=== PATIENT | female | born 1935 | race Caucasian/White ===

== ENCOUNTER 2017-11-30 21:45 | Inpatient (IN) | payer MEDICARE, MEDICAID ==
[~2017-11-30] VITALS: Ht 170.2 cm; Wt 68.0 kg
[~2017-11-30 21:45] MED LIST: AMLO2.5T3 PO; CIPR-263 PO
--- NOTE | 2017-11-30 22:00 | NUR ---
PT BBRA FROM HOME C/O ACHING L HIP PAIN 3/10 S/P FALLING AT HOME. PT STATES SHE BECAME DIZZY WHILE WALKING AND FELL DOWN ON THE LEFT SIDE. -KO. -N/V/D. PT STATES SHE HAS HX OF VERTIGO AND EXPLAINED HOW THE DIZZINESS FELT LIKE HER USUAL VERTIGO SYMPTOMS. PEDAL PULSES STRONG AND EQULA BILATERAL. EQUAL SENSATIONS BILATERAL. NO SKIN BRAKDOWNS OR BRUSING NOTED. SKIN WARM AND DRY. PT IS AAOX4. RESP EVEN AND UNLABORED. NO S/S OF DISTRESS NOTED. VSS. PT SAFETY AND COMOFRT MEAUSRES IN PLACE. PT PLACED ON MONITOR AND POX. FAMILY MEMBERS BEDSIDE WITH PT. BEDSIDE FOR EVAL.
[2017-12-01] MEDS ORDERED: HYDROMORPHONE 1 MG/1 ML DISP.SYRIN IV ONE
[2017-12-01] MEDS ORDERED: HYDROMORPHONE INJ 2 MG/ML DISP.SYRIN ONE (00:09)
[2017-12-01 00:10] LABS: BASOPHILS % (AUTO) 0.3 % (0.0-2.0); EOSINOPHILS % (AUTO) 0.1 % (0.0-6.0); HEMATOCRIT 37 % (33-45); HEMOGLOBIN 12.5 g/dL (11.5-14.8); LYMPHOCYTES # (AUTO) 0.8 /CMM (0.8-4.8); LYMPHOCYTES % (AUTO) 7.2 % (20.0-44.0); MEAN CORPUSCULAR HGB CONC 34 g/dl (31.0-36.0); MEAN CORPUSCULAR VOLUME 96 fL (82-100); MONOCYTES # (AUTO) 0.7 /CMM (0.1-1.30); MONOCYTES % (AUTO) 6.1 % (2.0-12.0); NEUTROPHILS # (AUTO) 9.4 /CMM (1.8-8.9); NEUTROPHILS % (AUTO) 86.3 % (43.0-81.0); PLATELET COUNT (AUTO) 205 /CMM (150-450); RDW COEFFICIENT OF VARIATION 13.4 (11.5-15.0); RED BLOOD CELL COUNT(AUTO) 3.85 MIL/uL (4.0-5.2); WHITE BLOOD COUNT (AUTO) 10.9 K/uL (4.3-11.0)
[2017-12-01 00:21] LABS: CALCIUM, SERUM 8.5 mg/dL (8.5-10.1); CARBON DIOXIDE 26 mmol/L (21-32); CHLORIDE 105 mmol/L (98-107); CREATININE 0.9 mg/dL (0.6-1.3); GLUCOSE 171 mg/dL (74-106); POTASSIUM 4.3 mmol/L (3.5-5.1); SODIUM SERUM 139 mmol/L (136-145); UREA NITROGEN, BLOOD 16 mg/dL (7-18)
[2017-12-01] MEDS ORDERED: DEXL60CA3 PO (00:34)
[2017-12-01] MEDS ORDERED: LOSA50TA21 PO (00:34)
[2017-12-01] MEDS ORDERED: AMLO5TAB7 PO (00:34)
[2017-12-01 00:35] LABS: INR 1.02 (0.87-1.13)
--- NOTE | 2017-12-01 00:40 | NUR ---
REPORT GIVEN TO ERICK BAIN DUYEN FOR CATRACHO.
[2017-12-01] MEDS ORDERED: ONDANSETRON HCL/PF 4 MG/2 ML VIAL ONE (00:58)
[2017-12-01] MEDS ORDERED: ONDANSETRON HCL/PF 4 MG/2 ML VIAL IV PRN (01:00)
[2017-12-01 01:15] VITALS: BP 144/76
[2017-12-01] MEDS ORDERED: MORPHINE SULFATE INJ 2 MG/ML DISP.SYRIN IV PRN (01:30)
[2017-12-01] MEDS ORDERED: IV D5/0.45 NACL 1,000 ML IV PRN (01:30)
[2017-12-01] MEDS ORDERED: ONDANSETRON HCL/PF 4 MG/2 ML VIAL IVP PRN (01:30)
[2017-12-01] MEDS ORDERED: ACETAMINOPHEN 650 MG/SUPP.RECT RC PRN (01:30)
--- NOTE | 2017-12-01 01:30 | NUR ---
RN NOTE; RECEIVED AND ADMITTED THE PT FROM ER. BREATHING EVENLY. NO SOB. NAD. NO C/O PAIN LONG REMAINED UNTOUCHED AND NOT MOVED. VSS. MEDICAL INFO WAS OBTAINED FROM THE DTRs AT THE BED SIDE. NEEDS ATTENDED , BED LOW LOCKED ,CALL LIGHT WITHIN REACH. WILL CONT TO MONITOR ,
--- NOTE | 2017-12-01 01:45 | NUR ---
RECEIVED ADMITTING ORDER FROM DR. MARI . W/ AN ORDER FOR ADMIT TO "TELEMETRY". CALLED DR. MARI AND VERIFIED THE ORDER W/ . DR. MARI ALSO W. AN ORDER TO INSERT F/C WHILE OBTAINING URINE SAMPLE. CLEANING CUSTODIAN MADE AWARE. PT WAS ASSIGNED TO ROOM 325-1.
--- NOTE | 2017-12-01 01:58 | NUR ---
RN NOTES: PT COMPLAINING OF 8/10 L HIP PAIN. PT REQUESTING FOR PAIN MEDICATION. PT WAS ADMINISTERED MORPHINE IV. WILL CONTINUE TO MONITOR.
--- NOTE | 2017-12-01 02:30 | NUR ---
TELE/RN NOTES RECEIVED PT. FROM [facility] VIA BED. RECEIVED BEDSIDE REPORT FROM ODELL SORIA. PT. IS AWAKE, ALERT AND ORIENTED X4. BREATHING EVEN AND UNLABORED ON 2LPM O2 VIA NC. NO SOB, RESPIRATORY DISTRESS OR COMPLAINTS OF PAIN NOTED AT THIS TIME. PT. WITH LEFT AC 20 GAUGE PERIPHERAL IV PRESENT, PATENT AND INTACT ADMINISTERING TO PT. D5 1/2 NS @ 70ML/HR. PER ODELL SORIA PT. HAS STAT UA/ URINE CULTURE ORDERED AND PT. IS REFUSING ALVARADO CATHETER INSERTION AND REQUESTS TO USE BEDPAN WHEN NEEDING TO URINATE. EDUCATED PT. ON IMPORTANCE OF COLLECTING URINE AND IMPORTANCE OF ALVARADO CATHETER TO PREVENT PAIN FROM LEFT HIP FRACTURE WHEN TURNING AND REPOSITIONING WHEN NEEDING TO URINATE. PT. VERBALIZED UNDERSTANDING AND CONTINUES TO REFUSE. PT. NOTIFIED TO CALL FOR ASSISTANCE WITH USING BEDPAN WHEN NEEDED. PT. VERBALIZED UNDERSTANDING. BED LOCKED AND IN LOWEST POSITION, SIDE RAILS UP X2, BED ALARM ON, WILL CONTINUE TO MONITOR.
--- NOTE | 2017-12-01 02:45 | NUR ---
PT REFUSED ALVARADO CATH INSERTION. RISK VS. BENEFITS WERE EXPLAINED TO THE PT USING AN PHP WEB DEVELOPER . PT WAS TRANSFERRED TO THE 3RD ALVARADO RM:325-1 UNDER ACLS PROTOCOL I STABLE CONDITION. BED SIDE REPORT GIVEN TO CARRIE.
[2017-12-01 04:00] VITALS: BP 101/59
[2017-12-01 06:41] LABS: APPEARANCE,URINE CLOUDY (CLEAR); BILIRUBIN,URINE 1+ (NEGATIVE); BLOOD, URINE 1+ Ery/uL (NEGATIVE); COLOR,URINE YELLOW (YELLOW); KETONES,URINE NEGATIVE (NEGATIVE); LEUKOCYTE ESTERASE ,URINE NEGATIVE (NEGATIVE); NITRITE, URINE NEGATIVE (NEGATIVE); PH,URINE 5.5 (5.0-8.0); PROTEIN,URINE NEGATIVE (NEGATIVE); UGLUCOSE NEGATIVE (NEGATIVE); UROBILINOGEN,URINE 0.2 EU/dL (0.2)
--- NOTE | 2017-12-01 06:55 | NUR ---
TELE/RN NOTES PT. IS LYING IN BED RESTING. BREATHING EVEN AND UNLABORED ON 2LPM O2 VIA NC. NO SOB, RESPIRATORY DISTRESS OR COMPLAINTS OF PAIN NOTED AT THIS TIME. PT. WITH LEFT AC 20 GAUGE PERIPHERAL IV PRESENT, PATENT AND INTACT ADMINISTERING TO PT. D5 1/2 NS @ 70ML/HR. PT. WITH EXTERNAL LATEXER PRESENT AND INTACT. ALL PT. NEEDS MET. BED LOCKED AND IN LOWEST POSITION, SIDE RAILS UP X2, BED ALARM ON, WILL ENDORSE TO DAYSHIFT NURSE FOR CONTINUITY OF CARE.
--- NOTE | 2017-12-01 07:50 | NUR ---
APPRAISER OPENING NOTE PATIENT IS ALERT AND ORIENTED x4. POLISH SPEAKING. NO PAIN AT THIS TIME. NO SOB OR DISTRESS NOTED. CALL LIGHT WITHIN REACH. SAFETY MEASURES IMPLEMENTED. ABLE TO COMMUNICATE NEEDS. IV INTACT AND PATENT NO REDNESS OR SWELLING NOTED WITH IV FLUIDS RUNNING AT THIS TIME. TELE MONITOR-SR WITH PACS 64. NPO AT THIS TIME FOR POSSIBLE SURGERY WITH ORTHO. WILL CONTINUE TO MONITOR THROUGHOUT SHIFT
[2017-12-01 08:00] VITALS: BP 111/56
[2017-12-01] MEDS: IV NS 0.9% 1,000 ML IV PRN (08:44)
[2017-12-01] MEDS: ENOXAPARIN SODIUM 40 MG/0.4 ML DISP.SYRIN SQ SCH ×2 (09:00→10:06)
[2017-12-01] MEDS: AMLODIPINE BESYLATE 5 MG TABLET PO SCH (09:00)
[2017-12-01] MEDS ORDERED: PANTOPRAZOLE 40 MG VIAL IV SCH (09:00)
--- NOTE | 2017-12-01 09:40 | NUR ---
MS RN NOTE PER PAWEL ROBERTS OKAY TO GIVE ICE CHIPS.
--- NOTE | 2017-12-01 09:41 | NUR ---
RN NOTE LOVENOX HELD DUE TO POSSIBLE SURGERY. AWARE
--- NOTE | 2017-12-01 09:42 | NUR ---
RN NOTE CALLED PATIENT'S FAMILY FOR QUESTIONS ABOUT PATIENT. AWAITING CALL BACK
--- NOTE | 2017-12-01 10:05 | NUR ---
RN NOTE PATIENT NOW ON MEDSURG, OKAY TO TRANSFER ALL PREVIOUS ORDERS
--- NOTE | 2017-12-01 10:09 | NUR ---
RN NOTE PER OKAY TO GIVE LOVENOX PROPHYLAXIS. LOVENOX GIVEN
[2017-12-01 10:11] LABS: TROPONIN I < 0.017 ng/mL (0.00-0.056)
[2017-12-01 10:13] LABS: BACTERIA,URINE Few /HPF (None Seen); CALCIUM OXALATE CRYSTALS,UR Few /HPF (None Seen); URINE AMORPHOUS URATE Many /HPF (None Seen); WBC,URINE 0-2 /HPF (0-3)
[2017-12-01 10:20] LABS: CHOLESTEROL 128 mg/dL (<200); FERRITIN 249 ng/mL (8-388); HDL CHOLESTEROL 60 mg/dL (40-60); LDL 60 mg/dL (0-99); THYROID STIMULATING HORMONE 0.537 uIU/mL (0.358-3.74); TRIGLYCERIDES 52 mg/dL (30-150)
[2017-12-01 10:35] LABS: SQUAMOUS EPITHELIAL CELL,UR Few /HPF (None Seen)
[2017-12-01 12:00] VITALS: BP 100/54
--- NOTE | 2017-12-01 12:04 | NUR ---
MS RN NOTE PATIENT IS NO LONGER NPO. NPO ORDER WAS IN FOR POSSIBLE SURGERY TODAY. NOW ON CARDIAC DIET AND WILL BE NPO POST MIDNIGHT FOR SURGERY 12/02/[address] RUFF. Addendum: 12/01/17 at 1207 by TONY ESTEBAN RN PER DR. SPEEDY NG TO EAT AT THIS TIME
[2017-12-01 12:27] LABS: IRON, SERUM 46 ug/dl (50-175); TOTAL IRON BINDING CAPACITY 253 ug/dl (250-450)
[2017-12-01] MEDS ORDERED: FENTANYL PF 100MCG/2ML AMPUL IV PRN (12:30)
[2017-12-01 13:28] LABS: PHOSPHORUS 3.4 mg/dL (2.5-4.9)
--- NOTE | 2017-12-01 14:25 | NUR ---
MS RN NOTE ORDER TO CHANGE TYLENOL FROM SUPPOSITORY TO PO PER MD. ORDERS NOTED AND CARRIED OUT.
[2017-12-01] MEDS ORDERED: ACETAMINOPHEN 325 MG TABLET PO PRN (14:30)
[2017-12-01 16:00] VITALS: BP 94/54
--- NOTE | 2017-12-01 18:47 | NUR ---
MS RN CLOSING NOTE PATIENT RESTING COMFORTABLY AT THIS TIME. NO PAIN NOTED. NO SOB OR DISTRESS NOTED. CALL LIGHT WITHIN REACH AT ALL TIMES. SAFETY MEASURES IMPLEMENTED. ABLE TO COMMUNICATE NEEDS. IV INTACT AND PATENT NO REDNESS OR SWELLING NOTED WITH IV FLUIDS RUNNING AT THIS TIME. NPO AFTER MIDNIGHT FOR SURGERY TOMORROW WITH DR. RUFF. CONSENTS SIGNED AND OBTAINED, PLACED IN CHART. ALL DUE MEDICATIONS GIVEN ORDERED. ALL NURSING CARE NEEDS ATTENDED TO NEEDED. STILL WAITING FOR [facility] TO BRING SCD'S. PER MD TO HOLD OFF ON LOVENOX MORNING DOSE 12/02/17. WILL ENDORSE TO HADOOP JAVA DEVELOPER NURSE FOR CATRACHO
--- NOTE | 2017-12-01 19:10 | NUR ---
MS/RN NOTES RECEIVED PT. LYING IN BED, AWAKE, ALERT AND ORIENTED X3. BREATHING EVEN AND UNLABORED ON 2LPM O2 VIA NC. NO SOB, RESPIRATORY DISTRESS OR COMPLAINTS OF PAIN NOTED AT THIS TIME. PT. WITH LEFT AC 20 GAUGE PERIPHERAL IV PRESENT, PATENT AND INTACT ADMINISTERING TO PT. NS @ 75 ML/HR. PER DAYSHIFT NURSE PT. IS SCHEDULED FOR SURGERY TO FIX LEFT FEMUR FRACTURE TOMORROW MORNING. PT. IS TO BE NPO AFTER MIDNIGHT. PT. WITH FAMILY MEMBERS PRESENT AT BEDSIDE. BED LOCKED AND IN LOWEST POSITION, SIDE RAILS UP X3, BED ALARM ON, CALL LIGHT WITHIN REACH, WILL CONTINUE TO MONITOR.
[2017-12-01 20:00] VITALS: BP 126/55
[2017-12-01] MEDS: LOSARTAN POTASSIUM 50 MG TABLET PO SCH (22:30)
[2017-12-02] VITALS (13 sets, daily range): BP systolic 100–140; BP diastolic 40–75
--- NOTE | 2017-12-02 06:45 | NUR ---
MS/RN NOTES PT. IS LYING IN BED, AWAKE, ALERT AND ORIENTED X3. BREATHING EVEN AND UNLABORED ON 2LPM O2 VIA NC. NO SOB, RESPIRATORY DISTRESS OR COMPLAINTS OF PAIN NOTED AT THIS TIME. PT. WITH LEFT AC 20 GAUGE PERIPHERAL IV PRESENT, PATENT AND INTACT ADMINISTERING TO PT. NS @ 75 ML/HR. PT. HAS BEEN NPO SINCE MIDNIGHT. ALL PT. NEEDS MET. PT. IS AWAITING SURGERY AT 0730, CONSENTS SIGNED AND PLACED IN PT. CHART. BED LOCKED AND IN LOWEST POSITION, SIDE RAILS UP X3, BED ALARM ON, CALL LIGHT WITHIN REACH, WILL ENDORSE TO DAYSHIFT NURSE FOR CONTINUITY OF CARE.
--- NOTE | 2017-12-02 07:06 | NUR ---
MS/RN NOTES PT. IN STABLE CONDITION. PT. LEFT THE FLOOR FOR SURGERY VIA BED ACCOMPANIED BY 2 OR NURSES.
[2017-12-02] MEDS ORDERED: ANESTHESIA TRAY IN PYXIS 1 EA TRAY MC ONE (07:14)
[2017-12-02] MEDS ORDERED: BACITRACIN 50000 UNITS/VIAL ONE (07:15)
[2017-12-02] MEDS ORDERED: BUPIVACAINE 0.25% 75 MG/30 ML VIAL ONE (07:15)
[2017-12-02] MEDS: PANTOPRAZOLE 40 MG TABLET.DR PO SCH (07:30)
[2017-12-02] MEDS ORDERED: FENTANYL PF 100MCG/2ML AMPUL ONE (07:34)
[2017-12-02] MEDS ORDERED: CLINDAMYCIN 900 MG/6 ML VIAL ONE (07:35)
[2017-12-02 07:36] LABS: BASOPHILS # (AUTO) 0.1 /CMM (0.0-0.2); EOSINOPHILS % (AUTO) 2.6 % (0.0-6.0); HEMATOCRIT 29 % (33-45); HEMOGLOBIN 9.9 g/dL (11.5-14.8); LYMPHOCYTES # (AUTO) 1.6 /CMM (0.8-4.8); LYMPHOCYTES % (AUTO) 21.9 % (20.0-44.0); MEAN CORPUSCULAR HGB CONC 35 g/dl (31.0-36.0); MEAN CORPUSCULAR VOLUME 96 fL (82-100); MONOCYTES # (AUTO) 0.6 /CMM (0.1-1.30); NEUTROPHILS # (AUTO) 4.8 /CMM (1.8-8.9); NEUTROPHILS % (AUTO) 66.5 % (43.0-81.0); PLATELET COUNT (AUTO) 159 /CMM (150-450); RDW COEFFICIENT OF VARIATION 12.8 (11.5-15.0); RED BLOOD CELL COUNT(AUTO) 2.98 MIL/uL (4.0-5.2); WHITE BLOOD COUNT (AUTO) 7.3 K/uL (4.3-11.0)
[2017-12-02 07:41] LABS: CARBON DIOXIDE 28 mmol/L (21-32); CHLORIDE 107 mmol/L (98-107); CREATININE 0.8 mg/dL (0.6-1.3); GLUCOSE 101 mg/dL (74-106); POTASSIUM 3.9 mmol/L (3.5-5.1); SODIUM SERUM 140 mmol/L (136-145); UREA NITROGEN, BLOOD 18 mg/dL (7-18)
[2017-12-02] MEDS ORDERED: ERGOCALCIFEROL (VITAMIN D 2) 50,000 UNIT CAPSULE PO SCH (09:00)
[2017-12-02] MEDS: AMLODIPINE BESYLATE 5 MG TABLET PO SCH (09:00)
[2017-12-02] MEDS: ENOXAPARIN SODIUM 40 MG/0.4 ML DISP.SYRIN SQ SCH (09:00)
--- NOTE | 2017-12-02 10:25 | NUR ---
MS RN NOTE - Return from surgery Patient returned to the unit after surgery to left hip AAOx4, breathing on 2L O2 NC with no SOB, no pain, no signs of acute distress. Vitals WNL. New duran catheter in place draining clear yellow urine. Left hip has two dressings both clean, dry, and intact. Vitals to be taken q15min x4, q30min x2, and q1h x4. All post-op orders have been acknowledged and entered. Patient will start on clear liquids and advance as tolerated. Will continue to monitor.
[2017-12-02 11:41] LABS: BASOPHILS % (AUTO) 0.2 % (0.0-2.0); EOSINOPHILS % (AUTO) 0.3 % (0.0-6.0); HEMATOCRIT 29 % (33-45); HEMOGLOBIN 9.8 g/dL (11.5-14.8); LYMPHOCYTES # (AUTO) 0.6 /CMM (0.8-4.8); LYMPHOCYTES % (AUTO) 5.9 % (20.0-44.0); MEAN CORPUSCULAR HGB CONC 34 g/dl (31.0-36.0); MEAN CORPUSCULAR VOLUME 96 fL (82-100); MONOCYTES # (AUTO) 0.3 /CMM (0.1-1.30); MONOCYTES % (AUTO) 3.5 % (2.0-12.0); NEUTROPHILS # (AUTO) 8.7 /CMM (1.8-8.9); NEUTROPHILS % (AUTO) 90.1 % (43.0-81.0); PLATELET COUNT (AUTO) 161 /CMM (150-450); RDW COEFFICIENT OF VARIATION 12.5 (11.5-15.0); RED BLOOD CELL COUNT(AUTO) 2.98 MIL/uL (4.0-5.2); WHITE BLOOD COUNT (AUTO) 9.6 K/uL (4.3-11.0)
[2017-12-02 11:50] LABS: CALCIUM, SERUM 7.7 mg/dL (8.5-10.1); CARBON DIOXIDE 26 mmol/L (21-32); CHLORIDE 107 mmol/L (98-107); CREATININE 0.9 mg/dL (0.6-1.3); GLUCOSE 151 mg/dL (74-106); POTASSIUM 4.3 mmol/L (3.5-5.1); SODIUM SERUM 140 mmol/L (136-145); UREA NITROGEN, BLOOD 17 mg/dL (7-18)
[2017-12-02] MEDS ORDERED: SEVOFLURANE 250 ML BOTTLE IH ONE ×2 (14:23→14:29)
[2017-12-02] MEDS ORDERED: DESFLURANE 240 ML BOTTLE IH ONE ×2 (14:23→14:30)
[2017-12-02] MEDS ORDERED: TRAMADOL HCL 50 MG TABLET PO PRN (14:30)
[2017-12-02] MEDS ORDERED: VANCOMYCIN 1 GM in IV D5W 250ml IV SCH (15:00)
[2017-12-02] MEDS: VANCOMYCIN 1 GM in IV D5W 250ml IV SCH (16:08)
[2017-12-02] MEDS: DOCUSATE SODIUM 100 MG CAPSULE PO SCH (17:07)
[2017-12-02] MEDS: ACETAMINOPHEN 325 MG TABLET PO SCH (17:07)
--- NOTE | 2017-12-02 17:30 | NUR ---
MS RN NOTE - new IV Peripheral IV in left AC was found to be infiltrated. IV fluids were paused, IV removed, left arm elevated on pillow. New 22g peripheral IV was inserted in the right FA; good blood return, flushed, IV fluids resumed (NS at 75 ml/hr).
--- NOTE | 2017-12-02 18:23 | NUR ---
MS RN CLOSING NOTE Patient rests comfortably in bed AAOx4, breathing on 2L O2 NC with no SOB, and no signs of acute distress. Patient has reported only 2/10 pain at the incision site (left hip) throughout this shift. Two dressings cover the incisions and remain clean, dry, and intact. Vitals remained WNL. Diet was advanced gradually from clear liquids this AM to regular at dinner; no nausea or vomiting. Peripheral IV in right FA (22g) is running NS at 75 ml/hr. Choi cath is draining clear yellow urine. Bed is in low/locked position, two side rails up, call james within reach. Family is at bedside. All orders and patient needs met this shift. Patient care will be endorsed to striper nurse.
--- NOTE | 2017-12-02 19:45 | NUR ---
MS RN NOTES RECEIVED ON BED WITH HOB ELEVATED,A/O X3,SPEAK [place]OREAN,S/P LEFT HIP INTRA MEDULLARY RODDING TODAY BY DR RUFF.DRESSING INTACT AND DRY.IVF NS AT 75ML/HR RATE INFUSING WELL ON RFA VIA IV PUMP.AMBULATE WITH WALKER.CALL LIGHT IN REACH,NEEDS ANTICIPATED.
--- NOTE | 2017-12-02 22:15 | NUR ---
MS RN NOTES BP 110/63,DUE COZAAR 50MG PO GIVEN SCHEDULED.
[2017-12-02] MEDS: LOSARTAN POTASSIUM 50 MG TABLET PO SCH (22:19)
[2017-12-03] VITALS (7 sets, daily range): BP systolic 88–151; BP diastolic 45–69
[2017-12-03] MEDS: VANCOMYCIN 1 GM in IV D5W 250ml IV SCH (03:45)
[2017-12-03] MEDS: IV NS 0.9% 1,000 ML IV PRN ×2 (04:02→08:58)
[2017-12-03] MEDS: ACETAMINOPHEN 325 MG TABLET PO SCH ×4 (05:47→17:02)
[2017-12-03 06:37] LABS: BASOPHILS % (AUTO) 0.3 % (0.0-2.0); EOSINOPHILS % (AUTO) 0.2 % (0.0-6.0); HEMATOCRIT 23 % (33-45); LYMPHOCYTES # (AUTO) 1.1 /CMM (0.8-4.8); LYMPHOCYTES % (AUTO) 15.3 % (20.0-44.0); MEAN CORPUSCULAR HGB CONC 35 g/dl (31.0-36.0); MEAN CORPUSCULAR VOLUME 96 fL (82-100); MONOCYTES # (AUTO) 0.6 /CMM (0.1-1.30); MONOCYTES % (AUTO) 9.4 % (2.0-12.0); NEUTROPHILS # (AUTO) 5.2 /CMM (1.8-8.9); NEUTROPHILS % (AUTO) 74.8 % (43.0-81.0); PLATELET COUNT (AUTO) 137 /CMM (150-450); RDW COEFFICIENT OF VARIATION 12.5 (11.5-15.0); RED BLOOD CELL COUNT(AUTO) 2.37 MIL/uL (4.0-5.2); WHITE BLOOD COUNT (AUTO) 6.9 K/uL (4.3-11.0)
[2017-12-03 06:40] LABS: ALANINE AMINOTRANSFERASE 19 U/L (12-78); ALBUMIN 2.4 g/dL (3.4-5.0); ALKALINE PHOSPHATASE 62 U/L (46-116); ASPARTATE AMINOTRANSFERASE 26 U/L (15-37); CALCIUM, SERUM 7.6 mg/dL (8.5-10.1); CARBON DIOXIDE 26 mmol/L (21-32); CHLORIDE 110 mmol/L (98-107); CREATININE 0.7 mg/dL (0.6-1.3); GLUCOSE 103 mg/dL (74-106); MAGNESIUM 1.9 mg/dL (1.8-2.4); PHOSPHORUS 2.8 mg/dL (2.5-4.9); POTASSIUM 4.4 mmol/L (3.5-5.1); SODIUM SERUM 141 mmol/L (136-145); TOTAL PROTEIN, SERUM 5.2 g/dL (6.4-8.2); UREA NITROGEN, BLOOD 17 mg/dL (7-18)
--- NOTE | 2017-12-03 06:48 | NUR ---
MS RN NOTES SLEPT WELL AT [facility],DENIES PAIN.IV ABX TOLERATED WELL.DVT PUMP IN USED.IVF IN PROGRESS.CALL LIGHT IN REACH,NEEDS ATTENDED.WILL ENDORSE TO DAY NURSE FOR CATRACHO.
--- NOTE | 2017-12-03 07:21 | NUR ---
MS RN OPENING NOTES RECEIVED PATIENT IN STABLE CONDITION. IN NO APPARENT DISTRESS. BEDSIDE RAILS ARE UPX2. BED IS LOCKED AND LOWERED. IV LINE IS INTACT AND PATENT. CALL LIGHT IS WITHIN REACH. WILL CONTINUE TO MONITOR.
[2017-12-03] MEDS: DOCUSATE SODIUM 100 MG CAPSULE PO SCH ×2 (08:26→17:00)
[2017-12-03] MEDS: PANTOPRAZOLE 40 MG TABLET.DR PO SCH (08:26)
[2017-12-03] MEDS: AMLODIPINE BESYLATE 5 MG TABLET PO SCH (08:27)
[2017-12-03] MEDS: ENOXAPARIN SODIUM 40 MG/0.4 ML DISP.SYRIN SQ SCH (08:30)
--- NOTE | 2017-12-03 18:46 | NUR ---
BLOOD TRANSFUSION ENDED.
--- NOTE | 2017-12-03 19:22 | NUR ---
MS RN CLOSING NOTES PATIENT IS IN STABLE CONDITION. IN NO APPARENT DISTRESS. BEDSIDE RAILS ARE UPX2. BED IS LOCKED AND LOWERED. CALL LIGHT IS WITHIN REACH. ALL NEEDS WERE MET. IV LINE IS INTACT AND PATENT. WILL ENDORSE CARE TO WET TRIMMER NURSE FOR CATRACHO.
--- NOTE | 2017-12-03 19:40 | NUR ---
MS RN OPENING NOTES RECEIVED PT IN BED, ALERT, AWAKE, VERBALLY RESPONSIVE. ON O2 VIA N/C AT 2L/MIN, RESPIRATIONS EVEN, UNLABORED, NO APPARENT DISTRESS NOTED. DENIES ANY PAIN OR DISCOMFORT AT THIS TIME. IV SITE LT AC INTACT, PATENT.CALL LIGHT WITHIN REACH.ATTENDED ALL NEEDS. WILL CONTINUE TO MONITOR ACCORDINGLY.
--- NOTE | 2017-12-03 19:40 | NUR ---
MS RN OPENING NOTES
[2017-12-03] MEDS: LOSARTAN POTASSIUM 50 MG TABLET PO SCH (21:13)
--- NOTE | 2017-12-04 00:31 | NUR ---
MS RN NOTE PT REFUSED TYLENOL 650, OFFERED X3, EXPLAINED BENEFITS, REFUSED. NO C/O OF PAIN OR DISCOMFORT AT THIS TIME. WILL CONTINUE TO MONITOR ACCORDINGLY
[2017-12-04] MEDS: ACETAMINOPHEN 325 MG TABLET PO SCH ×4 (06:00→18:11)
[2017-12-04 06:27] LABS: BASOPHILS % (AUTO) 0.6 % (0.0-2.0); EOSINOPHILS % (AUTO) 3.5 % (0.0-6.0); HEMATOCRIT 25 % (33-45); HEMOGLOBIN 8.8 g/dL (11.5-14.8); LYMPHOCYTES # (AUTO) 1.8 /CMM (0.8-4.8); MEAN CORPUSCULAR HGB CONC 35 g/dl (31.0-36.0); MEAN CORPUSCULAR VOLUME 94 fL (82-100); MONOCYTES # (AUTO) 0.7 /CMM (0.1-1.30); MONOCYTES % (AUTO) 8.9 % (2.0-12.0); NEUTROPHILS # (AUTO) 4.7 /CMM (1.8-8.9); PLATELET COUNT (AUTO) 156 /CMM (150-450); RDW COEFFICIENT OF VARIATION 14.4 (11.5-15.0); RED BLOOD CELL COUNT(AUTO) 2.69 MIL/uL (4.0-5.2); WHITE BLOOD COUNT (AUTO) 7.4 K/uL (4.3-11.0)
[2017-12-04 06:36] LABS: ALANINE AMINOTRANSFERASE 21 U/L (12-78); ALBUMIN 2.4 g/dL (3.4-5.0); ALKALINE PHOSPHATASE 63 U/L (46-116); ASPARTATE AMINOTRANSFERASE 24 U/L (15-37); BILIRUBIN,TOTAL 1.1 mg/dL (0.2-1.0); CALCIUM, SERUM 7.9 mg/dL (8.5-10.1); CARBON DIOXIDE 25 mmol/L (21-32); CHLORIDE 109 mmol/L (98-107); CREATININE 0.7 mg/dL (0.6-1.3); GLUCOSE 90 mg/dL (74-106); MAGNESIUM 1.9 mg/dL (1.8-2.4); PHOSPHORUS 2.2 mg/dL (2.5-4.9); POTASSIUM 3.9 mmol/L (3.5-5.1); SODIUM SERUM 141 mmol/L (136-145); TOTAL PROTEIN, SERUM 5.3 g/dL (6.4-8.2); UREA NITROGEN, BLOOD 15 mg/dL (7-18)
--- NOTE | 2017-12-04 06:45 | NUR ---
MS RN CLOSING NOTES PT ALERT,AWAKE, VERBALLY RESPONSIVE, DENIES ANY PAIN OR DISCOMFORT AT THIS TIME. REFUSED TYLENOL 650, OFFERED X3, EXPLAINED BENEFITS STILL REFUSING STATED THAT DOES NOT HAVE PAIN. CALL LIGHT WITHIN REACH, ATTENDED ALL NEEDS. F/C REMOVED ORDERED. WILL ENDORSE TO DAY SHIFT FOR CONTINUITY OF CARE.
--- NOTE | 2017-12-04 07:30 | NUR ---
RN OPEN NOTES RECEIVED REPORT FROM COOK DESSERT NURSE. PATIENT IS IN BED, ALERT AND ORIENTED TO NAME, PLACE AND TIME. NO SIGNS AND SYMPTOMS OF DISTRESS. BED IN LOW POSITION, LOCKED AND TWO SIDE RAILS ARE UP FOR SAFETY. ARNOLDO LIGHT WITHIN REACH. WILL CONTINUE TO MONITOR PATIENT
[2017-12-04 08:00] VITALS: BP 115/63
--- NOTE | 2017-12-04 08:28 | NUR ---
[facility]
[2017-12-04] MEDS: DOCUSATE SODIUM 100 MG CAPSULE PO SCH ×2 (08:31→15:57)
[2017-12-04] MEDS: AMLODIPINE BESYLATE 5 MG TABLET PO SCH (08:32)
[2017-12-04] MEDS: ENOXAPARIN SODIUM 40 MG/0.4 ML DISP.SYRIN SQ SCH (08:32)
[2017-12-04] MEDS ORDERED: ERGOCALCIFEROL (VITAMIN D 2) 50,000 UNIT CAPSULE PO SCH (09:44)
--- NOTE | 2017-12-04 13:00 | NUR ---
DR RUFF AT BEDSIDE. NO DISCHARGE YET, D/C PLANING FOR WEDNESDAY. PATIENT NEEDS TO TAKE VITAMIN D AND CALCIUM SUPPLEMENT AT HOME. LABS IN AM PRIOR TO DISCHARGE
[2017-12-04] MEDS ORDERED: K PHOS NEUTRAL 250 MG TABLET PO ONE (14:30)
[2017-12-04 16:00] VITALS: BP 129/74
--- NOTE | 2017-12-04 18:45 | NUR ---
RN CLOSING NOTES PATIENT IS IN BED. ALERT AND ORIENTED TO SELF, TIME AND PLACE. CAMEROONIAN SPEAKING. NO SIGNS AND SYMPTOMS OF DISTRESS. ALL NURSING CARE WAS PROVIDED. IV SITE IS INTACT AND PATENT. PAIN CONTROLLED WITH ACETAMINOPHEN, BED IN LOW POSITION LOCKED AND TWO SIDE RAILS ARE UP. CALL LIGHT WITHIN REACH FOR SAFETY. WILL ENDORSE TO SENIOR QUALITATIVE RESEARCHER NURSE.
--- NOTE | 2017-12-04 19:20 | NUR ---
MS/RN NOTES RECEIVED PT. LYING IN BED. PT. IS AWAKE, ALERT AND ORIENTED X4. BREATHING EVEN AND UNLABORED ON 2LPM O2 VIA NC. NO SOB, RESPIRATORY DISTRESS OR COMPLAINTS OF PAIN NOTED AT THIS TIME. PT. WITH LEFT AC 20 GAUGE IV SALINE LOCK PRESENT, PATENT AND INTACT. PT. WITH FAMILY MEMBER PRESENT AT BEDSIDE. BED LOCKED AND IN LOWEST POSITION, SIDE RAILS UP X2, BED ALARM ON, CALL LIGHT WITHIN REACH, WILL CONTINUE TO MONITOR.
[2017-12-04 20:02] VITALS: BP 149/63
[2017-12-04] MEDS: LOSARTAN POTASSIUM 50 MG TABLET PO SCH (22:08)
[2017-12-05] MEDS: ACETAMINOPHEN 325 MG TABLET PO SCH ×2 (05:40)
--- NOTE | 2017-12-05 06:06 | NUR ---
MS/RN NOTES PT. IS LYING IN BED RESTING. BREATHING EVEN AND UNLABORED ON ROOM AIR. NO SOB, RESPIRATORY DISTRESS OR COMPLAINTS OF PAIN NOTED AT THIS TIME. PT. WITH LEFT AC 20 GAUGE IV SALINE LOCK PRESENT, PATENT AND INTACT. ALL PT. NEEDS MET. BED LOCKED AND IN LOWEST POSITION, SIDE RAILS UP X2, BED ALARM ON, CALL LIGHT WITHIN REACH, WILL ENDORSE TO DAYSHIFT NURSE FOR CONTINUITY OF CARE.
--- NOTE | 2017-12-05 07:36 | NUR ---
RN OPENING NOTES RECEIVED PT. PT IS STABLE AND RESTING IN BED. NO S/S OF RESP DISTRESS OR SOB. NO C/O PAIN AT THIS TIME. PT IS SCHEDULED FOR DC TODAY. SAFETY MEASURES IN PLACE, CALL LIGHT WITHIN REACH. WILL CONTINUE TO MONITOR.
[2017-12-05 07:51] LABS: BASOPHILS # (AUTO) 0.1 /CMM (0.0-0.2); BASOPHILS % (AUTO) 0.9 % (0.0-2.0); EOSINOPHILS % (AUTO) 7.3 % (0.0-6.0); HEMATOCRIT 26 % (33-45); HEMOGLOBIN 8.9 g/dL (11.5-14.8); LYMPHOCYTES # (AUTO) 1.6 /CMM (0.8-4.8); LYMPHOCYTES % (AUTO) 25.3 % (20.0-44.0); MEAN CORPUSCULAR HGB CONC 35 g/dl (31.0-36.0); MEAN CORPUSCULAR VOLUME 94 fL (82-100); MONOCYTES # (AUTO) 0.5 /CMM (0.1-1.30); MONOCYTES % (AUTO) 8.2 % (2.0-12.0); NEUTROPHILS # (AUTO) 3.8 /CMM (1.8-8.9); NEUTROPHILS % (AUTO) 58.3 % (43.0-81.0); PLATELET COUNT (AUTO) 190 /CMM (150-450); RDW COEFFICIENT OF VARIATION 14.4 (11.5-15.0); RED BLOOD CELL COUNT(AUTO) 2.75 MIL/uL (4.0-5.2); WHITE BLOOD COUNT (AUTO) 6.4 K/uL (4.3-11.0)
[2017-12-05 08:00] VITALS: BP 127/67
[2017-12-05] MEDS: AMLODIPINE BESYLATE 5 MG TABLET PO SCH (09:00)
[2017-12-05] MEDS: DOCUSATE SODIUM 100 MG CAPSULE PO SCH (09:00)
[2017-12-05] MEDS: ENOXAPARIN SODIUM 40 MG/0.4 ML DISP.SYRIN SQ SCH (09:04)
--- NOTE | 2017-12-05 13:00 | NUR ---
DISCHARGE NOTE PT DISCHARGED HOME. VSS, NO S/S OF SOB, NO C/O PAIN AT THIS TIME. DC TEACHING AND EDUCATION PERFORMED. EDUCATION ON LOVENOX SELF-ADMIN PERFORMED, PT ABLE TO RETURN DEMONSTRATE PROCEDURE. EXIT CARE PROVIDED, VERBALIZED UNDERSTANDING. PRESCRIPTION GIVEN. DC INSTRUCTIONS AND BELONGINGS SHEET SIGNED. ALL DOCUMENTS COPIED AND PLACED IN CHART. ID BAND AND IV ACCESS REMOVED. PT LEFT HOSPITAL IN PRIVATE CAR WITH FAMILY.
== END 2017-12-05 13:00 | disposition home health service (06) | DRG 956 ==
LOC: ER 21:47 → TELE2 12-01 00:29 → MEDSG2 12-01 00:36 → TELE 12-01 02:30 → MED 12-01 09:07
PROVIDERS: ADMIT Internal Medicine; ATTEND Nurse Practitioner Acute Care
PROC: 0QS704Z Reposition Left Upper Femur with Internal Fixation Device, Open Approach (ICD-10-PCS; principal; 2017-12-02 07:30)
PROC: 30233N1 Transfusion of Nonautologous Red Blood Cells into Peripheral Vein, Percutaneous Approach (ICD-10-PCS; 2017-12-03)
DX: S72.142A Displaced intertrochanteric fracture of left femur, initial encounter for closed fracture (principal); S32.591A Other specified fracture of right pubis, initial encounter for closed fracture; M80.851A Other osteoporosis with current pathological fracture, right femur, initial encounter for fracture; C34.92 Malignant neoplasm of unspecified part of left bronchus or lung; D62 Acute posthemorrhagic anemia; S32.592A Other specified fracture of left pubis, initial encounter for closed fracture; C34.91 Malignant neoplasm of unspecified part of right bronchus or lung; I10 Essential (primary) hypertension; W18.30XA Fall on same level, unspecified, initial encounter; Y92.009 Unspecified place in unspecified non-institutional (private) residence as the place of occurrence of the external cause; Z90.49 Acquired absence of other specified parts of digestive tract; Z88.0 Allergy status to penicillin; Z88.2 Allergy status to sulfonamides; Z79.899 Other long term (current) drug therapy; K21.9 Gastro-esophageal reflux disease without esophagitis
CPT/HCPCS: 36415; 71045-TC; 71250-TC; 73020; 73502; 73552; 80048-TC; 80053-TC; 80061-TC; 81000-TC; 82306; 82728-TC; 83540-TC; 83735-TC; 84100-TC; 84439-TC; 84443-TC; 84484-TC; 85025-TC; 85730-TC; 86850-TC; 86921-TC; 87081-TC; 87086-TC; 93307-TC; 97110-TC; 97116-TC; A4606; A6209; A6402; C1713; J1100; J1170; J1650; J1885; J2270; J2405; J2704; J3010; J3370; J3490; J7030; J7050; J7060; P9016-BL; Z7610